=== PATIENT | female | born 1945 | race Asian ===

== ENCOUNTER 2016-07-22 11:21 | Emergency (ER) | payer MEDICARE, OTHER ==
[~2016-07-22] VITALS: Ht 152.4 cm; Wt 42.0 kg
[~2016-07-22 11:21] MED LIST: ASPI-535 PO; ERGO500037 PO; LOSA50TA6 PO; RANI150C11 PO; SIME80TA53 PO; SMV40T PO
[2016-07-22 11:23] VITALS: Ht 152.4 cm; Wt 42.0 kg
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
[2016-07-22] MEDS ORDERED: IBUP-1542 PO (13:44)
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
[2016-07-22 13:56] VITALS: BP 115/75; PULSE 79; RESP 19; TEMP 98.3
== END 2016-07-22 13:57 | disposition home or self-care (01) ==
LOC: FTE 11:21
DX: S09.90XA Unspecified injury of head, initial encounter (principal); I10 Essential (primary) hypertension; R22.0 Localized swelling, mass and lump, head; V89.2XXA Person injured in unspecified motor-vehicle accident, traffic, initial encounter; Z79.82 Long term (current) use of aspirin
CPT/HCPCS: 70450; 71010; 72125